=== PATIENT | male | born 1975 | race Caucasian/White ===

== ENCOUNTER 2017-11-26 10:01 | Day surgery (SDC) | payer OTHER ==
[~2017-11-26] VITALS: Ht 180.3 cm; Wt 141.1 kg
[~2017-11-26 10:01] MED LIST: ACEBUTCAFT PO; ALBU90I INH; ALBU90OI; ALBU90OI INH; ALBU90OI6 INH; ALPR.5 PO; AMOX500 PO; AZIT250 PO; CEPH500 PO; CLIN300 PO; CYCL10 PO; DOXY100 PO; ESCI10 PO; ESCI5 PO; HYDACE10B PO; HYDACE5 PO; IBUP800 PO; LORA1 PO; META400 PO; META800 PO; METO10 PO; METR500 PO; NAPR220 PO; NAPR500 PO; NAPR550 PO; OMEP40CA12 PO; OXYACE5T PO; PEPTO BISMAL; PRED10 PO; PRED20 PO; RANI150 PO; RXOXYACE PO; SULTRIDS PO; TOPI50 PO; TRAM50 PO; TRAZ50 PO; ZOLP10 PO
== END 2017-11-26 23:06 | disposition home or self-care (01) ==
LOC: ORSCMMR 10:01
PROVIDERS: Internal Medicine Gastroenterology
PROC: 0DJD8ZZ Inspection of Lower Intestinal Tract, Via Natural or Artificial Opening Endoscopic (ICD-10-PCS; principal; 2017-11-26 11:00)
DX: Z12.11 Encounter for screening for malignant neoplasm of colon (principal); Z80.0 Family history of malignant neoplasm of digestive organs; K21.9 Gastro-esophageal reflux disease without esophagitis; F41.8 Other specified anxiety disorders; G47.30 Sleep apnea, unspecified; Z79.899 Other long term (current) drug therapy; Z87.891 Personal history of nicotine dependence; E66.01 Morbid (severe) obesity due to excess calories; Z68.41 Body mass index [BMI] 40.0-44.9, adult
CPT/HCPCS: J2250; J3010; J7120

== ENCOUNTER 2018-05-03 18:43 | Emergency (ER) | payer OTHER ==
[~2018-05-03] VITALS: Ht 177.8 cm; Wt 136.1 kg
[2018-05-03 20:05] LABS: Calcium, Ionized (POC) 1.11 mmol/L (1.10-1.46); Chloride (POC) 108 mmol/L (98-108); Creatinine (POC) 1.1 mg/dL (0.8-1.3); Glucose (ISTAT POC) 103 mg/dL (70-99); Potassium (POC) 3.7 mmol/L (3.5-5.5); Sodium (POC) 143 mmol/L (135-148); Total CO2 (POC) 24 mmol/L (21-32)
== END 2018-05-03 21:23 | disposition home or self-care (01) ==
LOC: ER 18:43
PROVIDERS: Nurse Practitioner Family
DX: S30.1XXA Contusion of abdominal wall, initial encounter (principal); J45.909 Unspecified asthma, uncomplicated; F17.290 Nicotine dependence, other tobacco product, uncomplicated; Z88.1 Allergy status to other antibiotic agents; Z79.899 Other long term (current) drug therapy; V43.52XA Car driver injured in collision with other type car in traffic accident, initial encounter
CPT/HCPCS: 36415; 74177; 80047; 85014; 99284-25; Q9967

== ENCOUNTER → 2019-06-18 | Outpatient (CLI) | payer OTHER | END | disposition home or self-care (01) | LOC: LAB EV 08:20 → LAB SHORT 08:20 | DX: M77.50 Other enthesopathy of unspecified foot and ankle (principal) | CPT/HCPCS: 84550 ==

== ENCOUNTER 2021-09-22 19:29 | Emergency (ER) | payer OTHER ==
[~2021-09-22] VITALS: Ht 177.8 cm; Wt 117.9 kg
[2021-09-22] MEDS ORDERED: Ventolin/Prove6.7 GM (19:50)
[2021-09-22] MEDS ORDERED: COLCHICINE0.6 MG PO (21:10)
[2021-09-22] MEDS ORDERED: Indomethacin50 MG PO (21:10)
== END 2021-09-22 21:25 | disposition home or self-care (01) ==
LOC: ER 19:29
DX: M10.9 Gout, unspecified (principal); J45.909 Unspecified asthma, uncomplicated; Z79.899 Other long term (current) drug therapy; Z87.891 Personal history of nicotine dependence
CPT/HCPCS: A9270

== ENCOUNTER 2023-05-07 12:13 | Emergency (ER) | payer OTHER ==
[~2023-05-07] VITALS: Ht 177.8 cm; Wt 104.3 kg
[~2023-05-07 12:13] MED LIST changes: +COLCHICINE0.6 MG PO; +Indomethacin50 MG PO; +Ventolin/Prove6.7 GM
[2023-05-07 12:30] VITALS: BP 148/99
[2023-05-07] MEDS ORDERED: BUPROPION XL150 M1 PO (13:20)
== END 2023-05-07 13:48 | disposition home or self-care (01) ==
LOC: ER 12:13
DX: F32.9 Major depressive disorder, single episode, unspecified (principal); F41.9 Anxiety disorder, unspecified; J45.909 Unspecified asthma, uncomplicated; F17.200 Nicotine dependence, unspecified, uncomplicated
CPT/HCPCS: 99282

== ENCOUNTER 2024-05-12 07:12 | Observation (INO) | payer OTHER ==
[2024-05-12] VITALS (21 sets, daily range): BP systolic 116–162; BP diastolic 77–117
[~2024-05-12] VITALS: Ht 177.8 cm; Wt 117.9 kg
[~2024-05-12 07:12] MED LIST changes: +BUPROPION XL150 M1 PO
[2024-05-12] MEDS ORDERED: Ketorolac Tromethamine 15mg Vial IV ONE (08:00)
[2024-05-12] MEDS ORDERED: NS 1,000 ML IV SCH (08:05)
[2024-05-12 08:14] LABS: BASOPHILS ABSOLUTE AUTO 0.06 K/mm3 (0.00-0.23); BASOPHILS PERCENT AUTO 1 % (0-2); EOSINOPHILS ABSOLUTE AUTO 0.06 K/mm3 (0.00-0.68); EOSINOPHILS PERCENT AUTO 1 % (0-6); Hematocrit 39.2 % (37.0-53.0); Hemoglobin 13.5 g/dL (13.5-17.5); IMMATURE GRAN ABSOLUTE AUTO 0.07 K/mm3 (0.00-0.10); IMMATURE GRAN PERCENT AUTO 1 % (0-1); LYMPHOCYTES ABSOLUTE AUTO 1.83 K/mm3 (0.84-5.20); LYMPHOCYTES PERCENT AUTO 16 % (21-46); MONOCYTES ABSOLUTE AUTO 0.81 K/mm3 (0.16-1.47); MONOCYTES PERCENT AUTO 7 % (4-13); Mean Corpuscular HGB 31.6 pg (26.0-34.0); Mean Corpuscular HGB Conc 34.4 g/dL (31.5-36.5); Mean Corpuscular Volume 92 fL (80-100); Mean Platelet Volume 10.3 fL (9.1-12.4); NEUTROPHILS ABSOLUTE AUTO 8.59 K/mm3 (1.96-9.15); NEUTROPHILS PERCENT AUTO 75 % (41-73); Platelet Count 295 K/mm3 (150-400); RDW Coefficient Variation 12.2 % (11.7-14.2); RDW Standard Deviation 41.3 fL (35.1-46.3); Red Blood Cell Count 4.27 M/mm3 (4.30-5.90); White Blood Cell Count 11.42 K/mm3 (4.00-11.30)
[2024-05-12 08:23] LABS: Albumin/Globulin Ratio 0.6 (0.8-1.8); Bilirubin, Total 0.4 mg/dL (0.1-1.0); Bun/Creatinine Ratio 17.7 (12.0-20.0); Calcium, Blood 8.1 mg/dL (8.5-10.1); Creatinine, Blood 0.96 mg/dL (0.60-1.20); Globulin, Blood 4.8 g/dL (2.2-4.0); Potassium, Blood 4.4 mmol/L (3.5-5.5); Total Protein, Blood 7.8 g/dL (6.4-8.2)
[2024-05-12] MEDS ORDERED: Lactated Ringer's 1,000 ML IV SCH ×3 (10:20→18:00)
[2024-05-12] MEDS ORDERED: Ondansetron HCl 2 MG / ML 2ML Vial IV PRN (10:20)
[2024-05-12] MEDS ORDERED: LORazepam 2 MG/ML 1ML Injection IV ONE (10:20)
[2024-05-12] MEDS ORDERED: CLON.5 PO (15:27)
[2024-05-12] MEDS ORDERED: OMEP20ER PO (15:28)
[2024-05-12] MEDS ORDERED: Allopurinol100 MG PO (15:30)
[2024-05-12] MEDS ORDERED: Midazolam HCl 1MG / ML 2ML Vial ONE (16:34)
[2024-05-12] MEDS ORDERED: propofoL 20 ML IV ONE ×2 (16:34→17:24)
--- NOTE | 2024-05-12 16:55 | NUR ---
PT HAS 20G IV TO LEFT HAND THAT FLUSHES WELL AND FLOWS TO GRAVITY.
--- NOTE | 2024-05-12 17:00 | NUR ---
PT BROUGHT FROM FLOOR TO DAY SURGERY FOR PROCEDURE. History, Chart, Medications and Allergies reviewed before start of procedure. Lungs clear T/O to Auscultation. Patient confirms NPO status and agrees with scheduled surgery. Pre-Op teaching done. Pt verbalizes understanding. PT AND DAD AT BEDSIDE.
--- NOTE | 2024-05-12 17:09 | NUR ---
PT TO OR AT ABOUT 1630
--- NOTE | 2024-05-12 17:18 | NUR ---
05/12/24 1718 Mady Jimenez HISTORY, CHART, MEDICATIONS AND ALLERGIES REVIEWED BEFORE START OF PROCEDURE. PATIENT CONFIRMS NPO STATUS AND AGREES WITH SCHEDULED PROCEDURE. 3-LEAD EKG REVIEWED WITH PHYSICIAN PRIOR TO START OF PROCEDURE. MONITOR INTACT WITH CONTINUOUS PULSE OXIMETRY,CAPNOGRAPHY, 3-LEAD EKG, INTERMITTENT BP. SUPPLEMENTAL O2 TO BE TITRATED THROUGHOUT PROCEDURE TO MAINTAIN O2 SATURATION ABOVE 90%. PATIENT DETERMINED TO BE ASA APPROPRIATE FOR PROPOFOL SEDATION PRIOR TO START OF PROCEDURE BY .MALLAMPATI CLASS 2 AIRWAY: COMPLETE VISUALIZATION OF THE UVULA.
[2024-05-12] MEDS ORDERED: Buspirone HCl15 MG PO (18:34)
[2024-05-12] MEDS ORDERED: ClonazePAM 0.5 MG Tab PO PRN (18:35)
[2024-05-12] MEDS ORDERED: Acetaminophen 325 MG TABLET PO PRN (18:35)
[2024-05-12] MEDS ORDERED: Polyethylene Glycol 3350 17 gm PO SCH (21:00)
[2024-05-12] MEDS ORDERED: BusPIRone HCl 5 MG Tab PO SCH (21:00)
[2024-05-13 04:14] VITALS: BP 127/81
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
[2024-05-13 08:23] VITALS: BP 146/103
[2024-05-13 08:24] VITALS: BP 156/111
[2024-05-13] MEDS ORDERED: Docusate Sodium 100 MG Cap PO SCH (09:00)
--- NOTE | 2024-05-13 09:00 | NUR ---
TO MRI VIA WC
--- NOTE | 2024-05-13 10:11 | NUR ---
RETURNS FROM IMAGING, PLEASANT & UPBEAT.
[2024-05-13] MEDS ORDERED: DOCU100 PO (14:39)
[2024-05-13] MEDS ORDERED: ALBU90OI INH (14:41)
--- NOTE | 2024-05-13 15:00 | NUR ---
DISCHARGE EXCITED FOR DC. UNDERSTANDS IMPORTANCE OF F/U & STOOL SOFTNERS. AMBULATES OUT w/ SPOUSE.
== END 2024-05-13 15:00 | disposition home or self-care (01) ==
LOC: ER 07:12 → SURS 07:13
PROVIDERS: Physician Assistant; ADMIT Surgery
PROC: 0DBP8ZX Excision of Rectum, Via Natural or Artificial Opening Endoscopic, Diagnostic (ICD-10-PCS; principal; 2024-05-12 19:30)
DX: K62.89 Other specified diseases of anus and rectum (principal); J45.909 Unspecified asthma, uncomplicated; K21.9 Gastro-esophageal reflux disease without esophagitis; Z87.891 Personal history of nicotine dependence; Z88.1 Allergy status to other antibiotic agents; Z79.899 Other long term (current) drug therapy
CPT/HCPCS: 72197; 74177; 80053; 82272; 85025; 88305; 96374-59; 96375; 99284-25; A9270; A9579; G0378; J1885; J2060; J2250; J2704; J7030; J7120; Q9967

== ENCOUNTER → 2025-06-01 | Outpatient (CLI) | payer OTHER ==
[~2025-06-01] MED LIST changes: +Allopurinol100 MG PO; +Buspirone HCl15 MG PO; +CLON.5 PO; +DOCU100 PO; +OMEP20ER PO
[2025-06-01 18:39] LABS: BASOPHILS ABSOLUTE AUTO 0.06 K/mm3 (0.00-0.23); BASOPHILS PERCENT AUTO 1 % (0-2); EOSINOPHILS ABSOLUTE AUTO 0.07 K/mm3 (0.00-0.68); EOSINOPHILS PERCENT AUTO 1 % (0-6); Hematocrit 37.7 % (37.0-53.0); Hemoglobin 13.3 g/dL (13.5-17.5); IMMATURE GRAN ABSOLUTE AUTO 0.06 K/mm3 (0.00-0.10); IMMATURE GRAN PERCENT AUTO 1 % (0-1); LYMPHOCYTES ABSOLUTE AUTO 3.00 K/mm3 (0.84-5.20); LYMPHOCYTES PERCENT AUTO 30 % (21-46); MONOCYTES ABSOLUTE AUTO 0.74 K/mm3 (0.16-1.47); MONOCYTES PERCENT AUTO 7 % (4-13); Mean Corpuscular HGB Conc 35.3 g/dL (31.5-36.5); Mean Corpuscular Volume 90 fL (80-100); NEUTROPHILS ABSOLUTE AUTO 6.09 K/mm3 (1.96-9.15); NEUTROPHILS PERCENT AUTO 61 % (41-73); NRBC ABSOLUTE 0.00 K/mm3 (0.00-0.02); NRBC Auto 0.0 /100 WBC (0.0-0.2); Platelet Count 284 K/mm3 (150-400); RDW Coefficient Variation 12.4 % (11.7-14.2); RDW Standard Deviation 40.4 fL (35.1-46.3)
== END ==
LOC: LAB 18:36 → LAB SHORT 18:36
PROVIDERS: Student in an Organized Health Care Education/Training Program
DX: K62.5 Hemorrhage of anus and rectum (principal)
CPT/HCPCS: 85025

== ENCOUNTER 2025-08-19 16:51 | Emergency (ER) | payer OTHER ==
[~2025-08-19] VITALS: Ht 177.8 cm; Wt 131.5 kg
[2025-08-19] MEDS ORDERED: NS 1,000 ML IV SCH (17:10)
[2025-08-19 19:55] LABS: Source, Urine Clean Catch
[2025-08-19 20:08] LABS: Bilirubin, Urine Neg (Neg); Color, Urine Yellow (P-Yellow); Glucose Qualitative, Urine Neg (Neg); Ketones, Urine Neg (Neg); Leukocyte Esterase, Urine Neg (Neg); Protein, Urine 1+ (Neg); Specific Gravity, Urine 1.025 (1.003-1.022); Urobilinogen, Urine NORM (Normal)
[2025-08-19 20:40] VITALS: BP 127/68
[2025-08-19] MEDS ORDERED: CEPH500 PO (20:59)
[2025-08-19] MEDS ORDERED: CLIN300 PO (21:14)
== END 2025-08-19 21:14 | disposition home or self-care (01) ==
LOC: ER 16:51
PROVIDERS: Emergency Medicine
DX: S30.22XA Contusion of scrotum and testes, initial encounter (principal); Z88.8 Allergy status to other drugs, medicaments and biological substances; Z79.899 Other long term (current) drug therapy; J45.909 Unspecified asthma, uncomplicated; Z87.891 Personal history of nicotine dependence; W22.8XXA Striking against or struck by other objects, initial encounter
CPT/HCPCS: 76870; 99284-25